=== PATIENT | male | born 1940 | race Caucasian/White ===

== ENCOUNTER 2016-10-24 12:34 | Emergency (ER) | payer MEDICARE, BC ==
--- NOTE | ~2016-10-24 | US85 ---
[facility] A Service of [facility] RADIOLOGY TEXT RESULTS PATIENT: JAYNA JOVEL LOCATION: [facility] : 40 UNIT #: [id number] AGE: [address]: Maurice Abebe MD SEX: M ORDER DR: [id number] [facility] [address] [place], [place] [address] [id number] MR#: [id number] Acc #: [id number] NAME: JAYAN JOVEL : 1940 SEX: M STUDY DATE/TIME: 10/24/2016 12:49 UNIT: SUNI ROOM: STUDY DESCRIPTION: LE Veins Unilat or Ltd Stdy Attending Physician: Maurice Abebe M.D. Ordering Physician: Ricardo Jane M.D. MEDICAL IMAGING REPORT This report is preliminary unless electronic signature is present EXAM Venous Doppler ultrasound, left leg, 10/24/2016. HISTORY 76-year-old male in the ED complaining of left leg swelling, present for 3-4 months. TECHNIQUE Venous ultrasound examination of the left lower extremity was performed using grayscale, spectral Doppler and color flow Doppler imaging. FINDINGS The examination is negative. There is no evidence of left lower extremity deep venous thrombus from the groin to the lower calf. Visualized greater saphenous vein is also patent. IMPRESSION Negative examination. No evidence of left lower extremity deep venous thrombosis. Dictated by... Vazquez Giordano M.D. THIS IS AN ELECTRONICALLY VERIFIED REPORT Vazquez Giordano M.D. at 10/25/2016 5:55 AM BENNIE/mario TD: 10/24/2016 15:27 JOB #: [id number] MEDICAL IMAGING REPORT [facility] A Service of [facility] RADIOLOGY TEXT RESULTS PATIENT: JAYNA JOVEL LOCATION: [facility] : 40 UNIT #: [id number] AGE: [address]: Maurice Abebe MD SEX: M ORDER DR: COPY
[~2016-10-24 12:34] MED LIST: ADVAIR 100-501 EAC1 INH; ASPIRIN ENTERI325 M1 PO; DEXAMETHASONE4 MG PO; DIFLUCAN100 MG PO; FLOMAX0.4 M1 DOB; FOLIC ACID1 MG PO; HEARTBURN RELIE75 M2 PO; LEXAPRO PO; MULTI VITAMIN1 EACH; NEXIUM PO; PRAVASTATIN SOD10 MG PO; SYNTHROID0.1 MG PO; TUMS200 MG; TYL325 PO
[2016-10-24 13:18] LABS: BASOPHIL% 0.1 % (0-2.5); HEMATOCRIT 32.7 % (38.0-50.0); HEMOGLOBIN 11.1 gm/dL (13.0-16.0); LYMPHOCYTE# 0.2 X10e3 (1.0-3.5); LYMPHOCYTE% 4.8 % (17.0-45.0); MEAN CELL VOLUME 94.2 FL (83-96); MEAN CORPUSCULAR HEMOGLOBIN 31.9 PG (28-34); MEAN CORPUSCULAR HGB CONC 33.9 g/dL (30-36); MEAN PLATELET VOLUME 6.7 FL (6.5-11.5); MONOCYTE# 0.3 X10e3 (0-1.0); MONOCYTE% 5.8 % (3.0-12.0); NEUTROPHIL# 4.4 X10e3 (1.5-7.1); NEUTROPHIL% 89.3 % (40-75); PLATELET COUNT 146 X10e3 (140-420); RED BLOOD COUNT 3.47 X10e (3.90-5.60); WHITE BLOOD COUNT 4.9 X10e3 (4.0-10.5)
[2016-10-24 13:19] LABS: DIFF IND YES
[2016-10-24 13:40] LABS: ALBUMIN SERUM 2.8 g/dL (3.5-5.0); ALKALINE PHOSPHATASE 39 U/L (32-92); ALT (SGPT) 19 U/L (10-40); AST (SGOT) 16 U/L (10-42); BILIRUBIN, DIRECT <0.1 mg/dL (0.0-0.2); BILIRUBIN,INDIRECT 0.3 mg/dL (0.0-0.9); BILIRUBIN,TOTAL 0.4 mg/dL (0.2-2.0); BLOOD UREA NITROGEN 12 mg/dL (9-23); BUN/CREATININE RATIO 17.14; CALCIUM SERUM 8.1 mg/dL (8.4-10.2); CARBON DIOXIDE 27 mmol/L (22-31); CHLORIDE 98 mmol/L (100-111); CREATININE SERUM 0.7 mg/dL (0.6-1.4); GLOM FILT RATE Estimated ABOVE60 mL/min (>60); GLUCOSE FASTING 155 mg/dL (70-110); POTASSIUM 4.8 mmol/L (3.5-5.1); PROTEIN TOTAL SERUM 5.6 g/dL (6.0-8.3); SODIUM 130 mmol/L (135-145)
[2016-10-24 15:15] LABS: ANISOCYTOSIS MOD; PLATELET ESTIMATE NORMAL (NORMAL); POIKILOCYTOSIS SL
== END 2016-10-24 14:49 | disposition home or self-care (01) ==
LOC: CED 12:34
PROVIDERS: Emergency Medicine
DX: R60.0 Localized edema (principal); E46 Unspecified protein-calorie malnutrition; J44.9 Chronic obstructive pulmonary disease, unspecified; K21.9 Gastro-esophageal reflux disease without esophagitis; C34.90 Malignant neoplasm of unspecified part of unspecified bronchus or lung; Z79.899 Other long term (current) drug therapy; Z79.82 Long term (current) use of aspirin
CPT/HCPCS: 29540; 36415; 80048; 80076; 85025; 93971; 99284; J1642